=== PATIENT | male | born 1950 | race Caucasian/White ===

== ENCOUNTER 2017-03-17 18:41 | Emergency (ER) | payer MEDICARE, OTHER ==
[2017-03-17] MEDS ORDERED: 0.9 % SODIUM CHLORIDE 500 ML IV ONE (19:12)
[2017-03-17] MEDS ORDERED: ONDANSETRON HCL/PF 4 MG/ 2ML VIAL IVP ONE (19:12)
[2017-03-17] MEDS ORDERED: DICYCLOMINE HCL 10 MG/ML VIAL IM SCH (19:15)
[2017-03-17 19:41] LABS: APPEARANCE,URINE Clear (CLEAR); COLOR,URINE Yellow (YELLOW); OCCULT BLOOD,URINE Negative (NEGATIVE); PH URINE 7.5 (5.0 - 8.0); UROBILINOGEN URINE 0.2 Eu (0.2-1.0)
[2017-03-17 19:45] LABS: MEAN CORPUSCULAR HEMOGLOBIN 32.1 pg (28.0-34.0); MEAN CORPUSCULAR VOLUME 94.5 fl (80.0-100.0)
--- NOTE | 2017-03-17 20:19 | ED Physician Documentation ---
Abdominal Pain - HPI Stated Complaint: N/V FEVER Chief Complaint: Abdominal Pain Onset: hours (since eating after colonoscopy today) Duration: sudden-onset Timing: still present Context: other (had colonoscopy today, ate heavy meal afterward). denies: out of country travel, bad food, recent trauma Severity: moderate Quality: aching Associated Symptoms: nausea Exacerbated by: food Relieved by: nothing Further Comments: no - ROS CONST: no problems GI/: other (cramping) CVS/RESP: none EYES/ENT: none MS/SKIN/LYMPH: none NEURO/PSYCH: none - SOCIAL HX Smoking History: non-smoker Alcohol Use: none Drug Use: none - FAMILY HX Family History: no significant history - PAST HX Past History: other (copd) Ischemic Bowel Risk Factors: none Other History: none Surgeries/Procedures: other (colonoscopy today) Immunizations: referred to PCP Home Medications: Ambulatory Orders Medication Instructions Recorded Budesonide/Formoterol Fumarate 2 puff IH BID 03/17/17 [Symbicort 160-4.5 Mcg Inhaler] Fluticasone Propionate [Flonase 1 spray NS BID 03/17/17 Nasal [place]] Ipratropium/Albuterol Sulfate 3 ml NEB QID 03/17/17 [Duoneb] Allergies/Adverse Reactions: Allergies Allergy/AdvReac Type Severity Reaction Status Date / Time tamsulosin HCl [From Flomax] AdvReac No Reaction Verified 03/17/17 19:14 - VITAL SIGNS Vital Signs: Vital Signs Temp Pulse Resp BP Pulse Ox 98.7 F 82 16 166/70 99 03/17/17 20:35 03/17/17 20:35 03/17/17 20:35 03/17/17 20:35 03/17/17 20:35 - REVIEWED ASSESSMENTS Nursing Assessment Reviewed: Yes Vitals Reviewed: Yes Progress - Results/Orders Results/Orders: ct abdomen/pelvis without contrast, cbc, ua, cmp ordered - Progress Progress: pt. given 500 cc NS IV, 8 mg Zofran IVP and 0.25 mg hyoscyamine p.o. in ER Critical Care Note - Critical Care Note Total Time (mins): 0 ED Results Lab/Radiology - Lab Results Lab Results: Lab Results 03/17/17 03/17/17 03/17/17 19:35 19:35 19:35 WBC 9.70 K/ul K/ul (4.00-12.00) RBC 4.42 M/ul M/ul (3.90-5.20) Hgb 14.2 g/dL g/dL (12.0-18.0) Hct 41.8 % % (37.0-53.0) MCV 94.5 fl fl (80.0-100.0) MCH 32.1 pg pg (28.0-34.0) MCHC 34.0 g/dL g/dL (30.0-36.0) RDW 13.6 % % (11.3-14.3) Plt Count 260 K/mm3 K/mm3 (130-400) Sodium 144 mmol/L mmol/L (136-145) Potassium 3.6 mmol/L mmol/L (3.5-5.1) Chloride 104 mmol/L mmol/L (98-107) Carbon Dioxide 27 mmol/L mmol/L (22-30) BUN 11 mg/dL mg/dL (9-20) Creatinine 1.00 mg/dL mg/dL (0.66-1.25) Estimated Creat Clear 57 Est GFR ( Amer) > 60 (60 - ) Est GFR (Non-Af Amer) > 60 (60 - ) Glucose 107 mg/dL H mg/dL (74-106) Calcium 9.2 mg/dL mg/dL (8.4-10.2) Total Bilirubin 0.3 mg/dL mg/dL (0.2-1.3) AST 30 U/L U/L (15-46) ALT 48 U/L U/L (13-69) Alkaline Phosphatase 61 U/L U/L (38-126) Total Protein 6.6 g/dL g/dL (6.3-8.2) Albumin 3.8 g/dL g/dL (3.5-5.0) Urine Color Yellow (YELLOW) Urine Appearance Clear (CLEAR) Urine pH 7.5 (5.0 - 8.0) Ur Specific [place] 1.020 (1.010-1.030) Urine Protein Negative mg/dL mg/dL (NEGATIVE) Urine Ketones Negative mg/dL mg/dL (NEGATIVE) Urine Occult Blood Negative (NEGATIVE) Urine Nitrite Negative (NEGATIVE) Urine Bilirubin Negative (NEGATIVE) Urine Urobilinogen 0.2 Eu Eu (0.2-1.0) Ur Leukocyte Esterase Negative (NEGATIVE) Urine Glucose Negative mg/dL mg/dL (NEGATIVE) - Radiology Radiology Impressions: ct abdomen/pelvis without contrast neg for pathology - Orders Orders: ED Orders Category Date Time Status Place IV Lock 1T Care 03/17/17 19:[address] ABD & PELVIS W/O CON Stat Exams 03/17/17 Completed CBC/PLATELET/DIFF Routine Lab 03/17/17 19:35 Completed CMP [CMP] Routine Lab 03/17/17 19:35 Completed URINALYSIS Routine Lab 03/17/17 19:35 Completed 0.9 % Sodium Chloride [Normal Saline] 500 ml Med 03/17/17 19:12 Discontinued IV NOW Dicyclomine HCl [Bentyl] Med 03/17/17 19:15 Discontinued 20 mg IM Q6 Hyoscyamine Sulfate [[place] Sl] Med 03/17/17 19:35 Discontinued 0.25 mg SL 1T ONE Ondansetron HCl/Pf [Zofran 4 mg/2 ml] Med 03/17/17 19:12 Discontinued 8 mg IVP NOW ONE Abdominal Pain Physical Exam - Physical Exam General Appearance: alert, mild distress EENT: eye inspection normal, ENT inspection normal, pharynx normal, no signs of dehydration, GUY, no nystagmus, TM's nml NECK: normal inspection, thyroid normal, supple RESPIRATORY: no resp distress, chest non-tender, breath sounds normal CVS: reg rate & rhythm, heart sounds normal, equal pulses, no murmur ABDOMEN: soft, no organomegaly, normal bowel sounds, tenderness (right upper quadrant), other (slight tympani) BACK: normal inspection, no CVA tenderness SKIN: warm/dry, normal color EXTREMITIES: non-tender, normal range of motion, no evidence of injury, no edema NEURO: oriented X3, CN's nml as tested, motor nml, sensation nml, mood/affect nml, cognition normal Vital Signs: Vital Signs Temp Pulse Resp BP Pulse Ox 98.7 F 82 16 166/70 99 03/17/17 20:35 03/17/17 20:35 03/17/17 20:35 03/17/17 20:35 03/17/17 20:35 Discharge Clincal Impression: Gastroenteritis Referrals: Primary Doctor,No [Primary Care Provider] - 2 Days Comments: Discharged in stable and improved condition with presciptions for Bentyl 10 mg # 8 1 p.o. ac and hs for next 48 hours and Zofran ODT 4 mg #10 1 p.o. qid prn n/v. Condition: Stable Disposition: 01 HOME, SELF-CARE Decision to Admit: NO Decision Time: 20:17
[2017-03-17 20:29] LABS: eGFR (African) > 60; eGFR (Non-African) > 60
[2017-03-17] MEDS: HYOSCYAMINE SULFATE 0.125 MG TAB.SUBL SL ONE ×2 (20:30→20:35)
[2017-03-17 20:44] VITALS: BP 166/70
--- NOTE | 2017-03-17 21:36 | Diagnostic Imaging Report ---
SARINA AGUILAR [facility] [id number] [facility] [address] [place], [place]. [address] Report Submission Date: Mar 17, 2017 7:57:52 PM [employer] Patient Study Name: KALI SOLO Date: Mar 17, 2017 7:32:13 PM [employer] Modality Type: CT\SR Gender: M Description: CT ABD & PELVIS W/O CO : 46 Institution: [facility] Physician: SARINA AGUILAR CT abdomen and pelvis without contrast History: Abdominal pain, recent colonoscopy Technique: Images through the abdomen and pelvis were obtained without contrast. Findings: Lung bases demonstrate emphysematous changes and flattening of the diaphragms. The the liver, gallbladder, spleen, pancreas, kidneys and adrenal glands are normal. There is no hydronephrosis, hydroureter renal calculus. Vascular calcifications are present in the kidneys. There is calcification in the abdominal aorta and its branches. There is no free air or fluid. There is no bowel obstruction. There is significant distention of the stomach with food material. Degenerative changes are noted in the lumbar spine. Impression: Emphysema. Aortic atherosclerosis. Gastric distention. Electronically signed on Mar 17, 2017 7:57:52 PM [employer] by: Ramsey RODRÍGUEZ
[2017-03-18 14:00] LABS: MONOCYTES % 6 % (0-11); SEGMENTED NEUTROPHILS % 72 % (39-79); TOXIC VACUOLATION PRESENT
== END 2017-03-17 20:36 | disposition home or self-care (01) ==
LOC: ED 18:41
DX: K52.89 Other specified noninfective gastroenteritis and colitis (principal)
CPT/HCPCS: 74176; 80053; 81002; 85025; 96365; 96375; 99283; J2405; J7060; A9270-GY; S1016